=== PATIENT | female | born 1985 | race Two or more races ===

== ENCOUNTER 2024-06-18 12:11 | Emergency (ER) | payer MEDICAID, SELFPAY ==
[2024-06-18 12:37] VITALS: BP 137/88; PULSE 83; RESP 16; TEMP 36.9; O2SAT 97; BMI 32.3
--- NOTE | 2024-06-18 12:51 | PD.EDHA ---
ED Headache RME/HPI General Chief Complaint: Headache Stated Complaint: HEADACHE X1 WEEK Time Seen by Provider: 06/18/24 12:33 Arrival date/time: 06/18/24 12:11 This is a 38-year-old female that comes to the emergency room with complaints of a headache and sinus pressure that is been going on for a week. Patient was recently seen at the clinic and was prescribed doxycycline for sinusitis. Patient states her pain is not better. Patient reports that she has not take any Tylenol or ibuprofen at home. Patient also complains of congestion and throat pain. Patient denies past medical history Related Data Home Medications ?Medication ?Instructions ?Recorded ?Confirmed prenat.vits,jassi,[id number] 1 tab PO QDAY 05/31/21 05/31/21 Previous Rx's ?Medication ?Instructions ?Recorded docusate sodium 100 mg capsule 100 mg PO BID #60 caps 05/31/21 (Colace) hydrocortisone 2.5 % topical cream 1 applic NC QDAY PRN hemorrhoids 05/31/21 with perineal applicator #30 tubes (Proctosol HC) ibuprofen 600 mg tablet 600 mg PO Q6H PRN pain #90 tabs 05/31/21 lanolin 50 % topical ointment 1 applic topical TID PRN skin 05/31/21 irritation #15 tubes witch cristian 50 % topical pads 1 pad topical BID #100 ea 05/31/21 (Tucks (witch cristian)) ibuprofen 800 mg tablet 800 mg PO Q6H PRN pain #14 tabs 06/18/24 Allergies Allergy/AdvReac Type Severity Reaction Status Date / Time No Known Allergies Allergy Verified 06/18/24 12:15 Course Orders Category Date Time Status Bedside COVID-19 Antigen Test NOW Care 06/18/24 12:50 Active Bedside Influenza A&B Antigen Test NOW Care 06/18/24 12:50 Completed Acetaminophen Tab [Tylenol ES Tab] Med 06/18/24 12:50 Discontinued 1,000 mg PO X1 ONE Ibuprofen Tab [Motrin Tab] Med 06/18/24 12:50 Discontinued 800 mg PO X1 ONE Vital Signs Vital signs: Vital Signs Temperature 98.5 F 06/18/24 12:37 Pulse Rate 83 06/18/24 12:37 Respiratory Rate 16 06/18/24 12:37 Blood Pressure 137/88 H 06/18/24 12:37 Pulse Oximetry (%) 97 06/18/24 12:37 Oxygen Delivery Method Room Air 06/18/24 12:37 Headache MDM Narrative MDM Narrative:: Patient feels better after Tylenol ibuprofen. Patient told to follow-up with primary provider in 1 to 2 days. Come back to the emergency room symptoms change or worsen. Medications / Prescriptions Medication administrations:: Medication Administration History Discontinued Medications Acetaminophen (Acetaminophen 500 Mg Tablet) 1,000 mg PO X1 ONE Stop: 06/18/24 12:51 Last Admin: 06/18/24 13:19 Dose: 1,000 mg Documented By: YENNY Ibuprofen (Ibuprofen Tab 400 Mg Tablet) 800 mg PO X1 ONE Stop: 06/18/24 12:51 Last Admin: 06/18/24 13:19 Dose: 800 mg Documented By: YENNY Discharge Plan Plan Patient Disposition: HOME (Self Care) Patient condition on transfer: Stable Prescriptions/Referrals Prescriptions/Med Rec: New ibuprofen 800 mg tablet 800 mg PO Q6H PRN (Reason: pain) Qty: 14 0RF No Action prenat.vits,jassi,[id number] Tablet 1 tab PO QDAY hydrocortisone [Proctosol HC] 2.5 % cream with perineal applicator 1 applic NC QDAY PRN (Reason: hemorrhoids) Qty: 30 0RF docusate sodium [Colace] 100 mg capsule 100 mg PO BID Qty: 60 0RF ibuprofen 600 mg tablet 600 mg PO Q6H PRN (Reason: pain) Qty: 90 0RF lanolin 50 % ointment 1 applic topical TID PRN (Reason: skin irritation) Qty: 15 0RF Tucks (witch cristian) 50 % pads, medicated 1 pad topical BID Qty: 100 0RF Referrals: Shania Laguerre PA-C [Primary Care Provider] - In 1 week Problem List Clinical Impression: Upper respiratory infection, viral Patient/Caregiver Discharge Instructions Discharge Activity: activity as tolerated Education Materials: ED URI, Viral, No Abx (Adult) Additional Instructions: Follow up with primary provider in 1-2 days. Come back to ED if symptoms change or worsen Print Language: Lao Stand Alone Forms: Jazmyn Award Info., Patient Portal Info Letter PA/ENVIRONMENTAL PROGRAMS SPECIALIST Supervising Physician PA/ENVIRONMENTAL PROGRAMS SPECIALIST Supervising Physician: raheem
[2024-06-18] MEDS: IBUPROFEN TAB 400 MG TABLET 800 MG PO (13:19)
[2024-06-18] MEDS: ACETAMINOPHEN 500 MG TABLET 1000 MG PO (13:19)
== END 2024-06-18 16:49 | disposition home or self-care (01) ==
PROVIDERS: Emergency Provider Family Medicine; PCP Physician Assistant
DX: J06.9 Acute upper respiratory infection, unspecified (principal)
CPT/HCPCS: 87400; 87811; 99283; A9270

== ENCOUNTER 2024-10-20 10:45 | Emergency (ER) | payer MEDICAID, SELFPAY ==
[2024-10-20 10:46] VITALS: BMI 32.2
[2024-10-20 10:52] VITALS: BP 148/80; PULSE 86; RESP 18; TEMP 36.9; O2SAT 98
--- NOTE | 2024-10-20 11:03 | XR_ITS ---
Examination: Foot, left, 3 views Technique: AP, oblique, lateral views foot, 3 views Date and time of exam: October 20, 2024 1108 hours INDICATIONS: Heel pain beginning one year ago. FINDINGS: No fracture or dislocation. 5 mm plantar bony calcaneal spur IMPRESSION: 5 mm plantar bony calcaneal spur
--- NOTE | 2024-10-20 11:03 | XR_ITS ---
Examination: Knee, right , 3 views Technique: Knee AP, lateral, oblique 3 views Date and time of exam: October 20, 2024 1108 hours INDICATIONS: Onset right knee pain today. FINDINGS: Mild osteopenia. No fracture or dislocation. Moderate tricompartment osteoarthritis. Moderate knee effusion IMPRESSION: Moderate tricompartment osteoarthritis
[2024-10-20] MEDS: KETOROLAC INJ 30 MG/ML VIAL IM (11:08)
[2024-10-20 11:55] LABS: Uric Acid 5.2 mg/dL (3.1-7.8)
--- NOTE | 2024-10-20 12:06 | PD.EDEXREM ---
ED Extremity Problem RME/HPI General Chief complaint: Extremity Problem,Nontraumatic Stated complaint: RIGHT KNEE PAIN WITH LEFT HEEL PAIN Time Seen by Provider: 10/20/24 10:47 Arrival date/time: 10/20/24 10:45 39-year-old female presents to the Emergency Department today for complaints of acute on chronic pain patient reports left heel pain as well as right knee pain patient reports symptoms intermittently ongoing for the last couple of months. Limitations: no limitations Related Data Home Medications ?Medication ?Instructions ?Recorded ?Confirmed prenat.vits,jassi,[id number] 1 tab PO QDAY 05/31/21 05/31/21 Previous Rx's ?Medication ?Instructions ?Recorded docusate sodium 100 mg capsule 100 mg PO BID #60 caps 05/31/21 (Colace) hydrocortisone 2.5 % topical cream 1 applic NV QDAY PRN hemorrhoids 05/31/21 with perineal applicator #30 tubes (Proctosol HC) ibuprofen 600 mg tablet 600 mg PO Q6H PRN pain #90 tabs 05/31/21 lanolin 50 % topical ointment 1 applic topical TID PRN skin 05/31/21 irritation #15 tubes witch cristian 50 % topical pads 1 pad topical BID #100 ea 05/31/21 (Tucks (witch cristian)) ibuprofen 800 mg tablet 800 mg PO Q6H PRN pain #14 tabs 06/18/24 meloxicam 7.5 mg tablet 7.5 mg PO QDAY 7 days #7 tabs 10/20/24 Allergies Allergy/AdvReac Type Severity Reaction Status Date / Time No Known Allergies Allergy Verified 10/20/24 10:48 Review of Systems Review of Systems Systems Reviewed: All systems reviewed, normal except as documented Constitutional Constitutional: Reports system reviewed and no additional complaints, except as documented, Denies fever(s) and Denies headache(s) Eyes Eyes: Reports system reviewed and no additional complaints, except as documented and Denies blurry vision ENT Ears, Nose, Mouth, and Throat: Reports system reviewed and no additional complaints, except as documented, Denies headache(s), Denies nasal congestion and Denies nasal discharge Cardiovascular Cardiovascular: Reports system reviewed and no additional complaints, except as documented, Denies chest pain and Denies dyspnea Respiratory Respiratory: Reports system reviewed and no additional complaints, except as documented, Denies chest congestion, Denies cough and Denies dyspnea Gastrointestinal Gastrointestinal: Reports system reviewed and no additional complaints, except as documented and Denies abdominal pain Musculoskeletal Musculoskeletal: Reports system reviewed and no additional complaints, except as documented, Denies deformity, Reports joint swelling, Denies numbness, Reports stiffness, Denies tingling and Reports other (right knee pain left heel pain ) Integumentary/Breasts Skin/Breast: Reports system reviewed and no additional complaints, except as documented and Denies rash Neurologic Neurologic: Reports system reviewed and no additional complaints, except as documented, Reports as per HPI, Denies headache(s), Denies numbness and Denies tingling Past Medical History Past Medical History NEUROLOGIC: Negative Neurological Disorders CARDIAC: Negative Cardiac Disorders or Congestive Heart Failure RESPIRATORY: Negative Chronic Obstructive Pulmonary Disease (COPD) GASTROINTESTINAL: Positive Gastrointestinal Disorders and Gall Bladder Disease (GALLBLADDER REMOVED); Negative Hepatitis or Colorectal Cancer GENITOURINARY: Negative Genitourinary Disorders, Renal Disease or Prostate Cancer REPRODUCTIVE: Positive Previous Pregnancies; Negative Breast Cancer or Testicular Cancer MUSCULOSKELETAL: Negative Musculoskeletal Disorders or Bone Cancer ENDOCRINE: Positive Endocrine Disorders; Negative Diabetes Mellitus Type 1 or Diabetes Mellitus Type 2 (GDM ID previous ) HEMATOLOGIC: Negative Blood Disorders OTHER HISTORY: Negative Hospitalization, Autoimmune Disease, Down Syndrome, Developmental Delay, Shingles, Falls, Blood Transfusions, Blood Transfusion Reaction, Anesthesia Reactions, Organ Transplant, Chemotherapy, Radiation Therapy, MRSA, VRSA, Vancomycin-Resistant Enterococci, Human Immunodeficiency Virus (HIV), Chicken Pox, Measles, Mumps, Rubella (Bulgarian Measles), Pertussis, Clostridium Difficile, Cancer, Breast Cancer, Cervical Cancer, Colorectal Cancer, Lung Cancer, Ovarian Cancer, Prostate Cancer or Testicular Cancer Family History FAMILY HISTORY: Positive Family Cardiac Disorders (PT MOTHER HTN); Negative Family Psychiatric Problems, Family Respiratory Disorders, Family Gastrointestinal Problems, Family Cancer, Family Surgery or Family Anesthesia Reaction Surgical History SURGICAL: Negative Section or Organ Transplant Social History SMOKING STATUS: Never smoker SECOND HAND EXPOSURE: No SUBSTANCE USE: does not use ED Exam General Limitations: Present no limitations General appearance: Present alert and in no apparent distress Head Head exam: Present atraumatic, normocephalic and normal inspection Eye Eye exam: Present normal appearance, PERRL and EOMI; Absent conjunctival injection ENT ENT exam: Present normal exam, normal oropharynx and mucous membranes moist Neck Neck exam: Present normal inspection, full ROM and trachea midline Chest Chest inspection: Present normal inspection and symmetric chest wall rise Respiratory Respiratory exam: Present normal lung sounds bilaterally Cardiovascular Cardiovascular exam: Present regular rate, normal rhythm and normal heart sounds Abdominal Exam Abdominal exam: Present soft and normal bowel sounds Extremities Exam Extremities exam: Present full ROM, tenderness, normal capillary refill and other (right knee pain left heel pain ) Back Exam Back exam: Present normal inspection and full ROM Neurological Exam Neurological exam: Present alert, oriented X3 and CN II-XII intact Psychiatric Psychiatric exam: Present normal affect and normal mood Skin Skin exam: Present warm, dry, intact and normal color Course Quality Measures none Orders Category Date Time Status XR foot comp LT min 3V Stat Exams 10/20/24 11:03 Completed XR knee RT 3V Stat Exams 10/20/24 11:03 Completed Uric Acid Stat Lab 10/20/24 11:25 Completed Ketorolac Inj [Toradol Inj] Med 10/20/24 11:03 Discontinued 30 mg IM X1 ONE Vital Signs Vital signs: Vital Signs Temperature 98.4 F 10/20/24 10:52 Pulse Rate 86 10/20/24 10:52 Respiratory Rate 18 10/20/24 10:52 Blood Pressure 148/80 H 10/20/24 10:52 Pulse Oximetry (%) 98 10/20/24 10:52 Oxygen Delivery Method Room Air 10/20/24 10:52 o2 sat 98% r.a wnl Extremity Problem MDM Narrative MDM Narrative:: 39-year-old female presents to the Emergency Department today for complaints of acute on chronic pain patient reports left heel pain as well as right knee pain patient reports symptoms intermittently ongoing for the last couple of months. On exam patient well-appearing patient does not appear ill or toxic in no acute distress Imaging obtained no acute emergent findings noted patient noted to have a heel spur of the left heel and osteoarthritis right knee Patient discharged home in no distress to follow-up with primary care doctor in the next 24 to 48 hours and for any worsening symptoms to return to the ER immediately Patient data External records reviewed:: [facility] previous records Clinical information provided by:: patient Social determinants that could affect healthcare access:: none Patient has the following chronic illnesses:: none How is presenting disease/condition affected by chronic disease/condition?: no chronic disease Evaluation data The following diagnostics were reviewed and interpreted by me:: radiology exam(s) Lab and/or radiology exams considered but not ordered:: radiology obtained Interpretation Summary: reviewed by me Medications / Prescriptions Medications or Prescriptions considered but not ordered:: given Medication administrations:: Medication Administration History Discontinued Medications Ketorolac Tromethamine (Ketorolac Inj 30 Mg/Ml Vial) 30 mg IM X1 ONE Stop: 10/20/24 11:04 Last Admin: 10/20/24 11:08 Dose: 30 mg Documented By: given Consultations Consultation(s) initiated? (list below): No Diagnosis Extremity Problem Differential Diagnosis: other (heel pain spur , right knee pain ) Most likely diagnosis given after review of the tests above:: heel pain spur , right knee pain Admission Indicated Admission indicated?: not indicated Admission Request Was there a request for admission?: No Disposition Plan Disposition Plan: Discharge Discharge Attestation Discharge Attestation: The patient and all family members were given an opportunity to ask questions and understood the discharge instructions. Discharge instructions specifically effects, indications for sooner follow up or return to the emergency department, and the expected course of current diagnosis. Patient condition: Stable Discharge Plan Plan Patient Disposition: HOME (Self Care) Discharge Disposition comment: Stable Prescriptions/Referrals Prescriptions/Med Rec: New meloxicam 7.5 mg tablet 7.5 mg PO QDAY 7 Days Qty: 7 0RF No Action prenat.vits,jassi,[id number] Tablet 1 tab PO QDAY hydrocortisone [Proctosol HC] 2.5 % cream with perineal applicator 1 applic NV QDAY PRN (Reason: hemorrhoids) Qty: 30 0RF docusate sodium [Colace] 100 mg capsule 100 mg PO BID Qty: 60 0RF ibuprofen 600 mg tablet 600 mg PO Q6H PRN (Reason: pain) Qty: 90 0RF lanolin 50 % ointment 1 applic topical TID PRN (Reason: skin irritation) Qty: 15 0RF Tucks (witch cristian) 50 % pads, medicated 1 pad topical BID Qty: 100 0RF ibuprofen 800 mg tablet 800 mg PO Q6H PRN (Reason: pain) Qty: 14 0RF Referrals: Shania Laguerre PA-C [Primary Care Provider] - In 1 week Problem List Clinical Impression: Arthritis of knee, right, Pain of left heel Patient/Caregiver Discharge Instructions Education Materials: What Is Osteoarthritis? Additional Instructions: Please follow up with your primary care doctor in the next 24-48hrs for any worsening symptoms return here immediately Print Language: Czech Stand Alone Forms: Jazmyn Award Info., Patient Portal Info Letter PA/DEEP FAT COOK FRY Supervising Physician PA/DEEP [employer] FRY Supervising Physician: Dr. [email or web address]
== END 2024-10-20 12:36 | disposition home or self-care (01) ==
PROVIDERS: Nurse Practitioner Primary Care; Emergency Provider Family Medicine; PCP Physician Assistant
DX: M17.11 Unilateral primary osteoarthritis, right knee (principal); M77.32 Calcaneal spur, left foot
CPT/HCPCS: 36415; 73562; 73630; 84550; 96372; 99283; J1885